=== PATIENT | female | born 1975 | race Caucasian/White ===

== ENCOUNTER 2017-08-24 16:51 | Emergency (ER) | payer BC | END 2017-08-24 17:21 | disposition home or self-care (01) | LOC: E/R 16:51 | DX: J20.9 Acute bronchitis, unspecified (principal) | CPT/HCPCS: 99284 ==

== ENCOUNTER 2017-09-02 17:38 | Emergency (ER) | payer BC | END 2017-09-02 19:45 | disposition home or self-care (01) | LOC: E/R 17:38 | DX: J30.9 Allergic rhinitis, unspecified (principal) | CPT/HCPCS: 99283 ==

== ENCOUNTER 2017-09-21 09:28 | Emergency (ER) | payer BC | END 2017-09-21 11:54 | disposition home or self-care (01) | LOC: FTE 09:28 | DX: J45.901 Unspecified asthma with (acute) exacerbation (principal) | CPT/HCPCS: 99284 ==

== ENCOUNTER 2018-03-16 19:14 | Emergency (ER) | payer BC ==
[2018-03-16] MEDS: DIPHTH/TET/ACEL PERTUSS (ADULT) 0.5 ML VIAL IM* (20:56)
== END 2018-03-16 21:35 | disposition home or self-care (01) ==
LOC: FTE 19:14
DX: S91.114A Laceration without foreign body of right lesser toe(s) without damage to nail, initial encounter (principal); J45.909 Unspecified asthma, uncomplicated; W20.8XXA Other cause of strike by thrown, projected or falling object, initial encounter; Y92.9 Unspecified place or not applicable; Z23 Encounter for immunization
CPT/HCPCS: 12001; 90471; 90715; 99283-25

== ENCOUNTER → 2018-10-05 | Emergency (ER) | payer BC | END | disposition home or self-care (01) | LOC: FTE 16:50 | DX: R21 Rash and other nonspecific skin eruption (principal); J45.909 Unspecified asthma, uncomplicated | CPT/HCPCS: 99282 ==